=== PATIENT | female | born 1995 | race Two or more races ===

== ENCOUNTER 2019-12-22 13:06 | Emergency (ER) | payer OTHER ==
[~2019-12-22] VITALS: Ht 157.5 cm; Wt 52.2 kg
[~2019-12-22 13:06] MED LIST: GILTUSS COUGH-118 ML PO
== END 2019-12-22 16:39 | disposition home or self-care (01) ==
LOC: ER 13:06
DX: S62.632A Displaced fracture of distal phalanx of right middle finger, initial encounter for closed fracture (principal); W23.0XXA Caught, crushed, jammed, or pinched between moving objects, initial encounter; Y93.89 Activity, other specified; Y92.89 Other specified places as the place of occurrence of the external cause; Y99.8 Other external cause status